=== PATIENT | male | born 2000 | race Hispanic/Latino ===

== ENCOUNTER → 2020-06-30 | Outpatient (CLI) | payer OTHER ==
--- NOTE | 2020-06-30 12:18 | Diagnostic Imaging Report ---
Examination: MRI SPINE LUMBAR WO CONTRAST History: Left leg leg pain. Comparison studies: None Technique: Sagittal, coronal and axial T2 , sagittal T1 and STIR; axial spin density oblique. Findings: Number of lumbar vertebral bodies: Five. Alignment: Normal lordosis. No scoliosis. Soft tissues: No T2 hyperintense inflammatory changes. Posterior paraspinal soft tissues and muscles: No abnormality. Lower thoracic cord: Normal in signal and morphology. The tip of the conus is at T12. Cauda equina: No masses. No arachnoiditis. Vertebrae: No fractures, infection or neoplasm. Degenerative changes: L1-L2: Small right central disc protrusion. No foraminal or canal stenosis. L2-L3 and L3-L4: No abnormalities. L4-L5: Central, left central disc protrusion superimposed on diffuse disc bulge results in mild canal stenosis and contact of the bilateral exiting L4 nerve roots. No foraminal stenosis. L5-S1: No abnormalities. IMPRESSION: Disc protrusions at L1-L2 and L4-L5 with mild canal stenosis at L4-L5. Contact of the bilateral exiting L4 nerve roots by the disc bulge at L4-L5. No foraminal stenosis. Signed by: Dr. Cesilia Maxwell M.D. on 06/30/2020 12:15 PM
== END ==
LOC: MRI 09:41
PROVIDERS: ATTEND Specialist
DX: M54.42 Lumbago with sciatica, left side (principal)
CPT/HCPCS: 72148